=== PATIENT | male | born 1965 | race Caucasian/White ===

== ENCOUNTER → 2020-05-21 14:35 | Outpatient (BNVA) | payer OTHER, SELFPAY | PROVIDERS: PCP Internal Medicine; Referring Provider Internal Medicine; Visit Provider Dietitian, Registered | DX: Z76.89 Persons encountering health services in other specified circumstances (principal) ==

== ENCOUNTER → 2020-05-31 16:46 | Outpatient (BNVA) | payer OTHER, SELFPAY | PROVIDERS: PCP Internal Medicine; Referring Provider Internal Medicine; Visit Provider Dietitian, Registered | DX: Z76.89 Persons encountering health services in other specified circumstances (principal) ==

== ENCOUNTER 2020-07-05 08:20 | Outpatient (REF) | payer OTHER, SELFPAY ==
[2020-07-05 09:35] LABS: Cholesterol 198 mg/dL; Glucose Fasting 126 mg/dL (60-99); HDL Cholesterol 51 mg/dL; LDL Cholesterol Calculated 133 mg/dl; Triglycerides 73 mg/dL
== END 2020-07-05 08:21 | disposition home or self-care (01) ==
LOC: HO.LAB 08:20
PROVIDERS: PCP Internal Medicine; Visit Provider Internal Medicine
DX: E66.01 Morbid (severe) obesity due to excess calories (principal); E11.9 Type 2 diabetes mellitus without complications
CPT/HCPCS: 80061; 82947

== ENCOUNTER → 2020-09-11 08:22 | Outpatient (BNVA) | payer OTHER, SELFPAY | PROVIDERS: PCP Internal Medicine; Visit Provider Surgery | DX: Z76.89 Persons encountering health services in other specified circumstances (principal) ==

== ENCOUNTER → 2021-02-25 15:18 | Outpatient (BNVA) | payer OTHER, SELFPAY | PROVIDERS: PCP Internal Medicine; Referring Provider Internal Medicine; Visit Provider Surgery ==

== ENCOUNTER 2021-03-01 07:27 | Outpatient (REF) | payer OTHER, SELFPAY ==
[2021-03-01 08:20] LABS: MANUAL DIFF FLAG NO
[2021-03-01 08:29] LABS: Basophils Percent Auto 0.1 % (0-2); Eosinophils Absolute Auto 0.3 X10*3/uL (0.0-0.4); Eosinophils Percent Auto 2.6 % (0-4); Hematocrit 49.6 % (42-52); Hemoglobin 16.5 g/dl (14.0-18.0); Imm Gran Abs Auto 0.04 X10*3/uL (0.00-0.03); Imm Gran Pct Auto 0.4 % (0.0-0.4); Lymphocytes Percent Auto 19.6 % (20-40); Mean Corpuscular HGB Conc 33.3 g/dl (31.0-36.0); Mean Corpuscular Hemoglobin 28.4 pg (27.0-33.0); Mean Corpuscular Volume 85.5 fL (80-98); Mean Platelet Volume 10.1 fL (9.4-12.4); Monocytes Absolute Auto 0.7 X10*3/uL (0.1-1.2); Monocytes Percent Auto 6.7 % (2-11); Neutrophils Percent Auto 70.6 % (45-73); Platelet Count 340 X10*3/uL (160-400); Red Cell Distribution Width 14.4 % (11.0-16.0)
[2021-03-01 08:43] LABS: Estimated Average Glucose 163 mg/dL; Hemoglobin A1c % 7.3 %
[2021-03-01 08:48] LABS: Alanine Aminotransferase 78 U/L (0-40); Albumin Level 4.4 g/dL (3.5-5.0); Alkaline Phosphatase 78 U/L (39-117); Anion Gap 17 (12-20); Aspartate Amino Transferase 54 U/L (5-37); Bilirubin Total 1.1 mg/dL (0.0-1.0); Blood Urea Nitrogen 17 mg/dL (9-16); Carbon Dioxide 26 mmol/L (22-29); Chloride 100 mmol/L (96-108); Cholesterol 218 mg/dL; Estimated Glomerular Filt Rate > 60; Glucose Fasting 142 mg/dL (60-99); HDL Cholesterol 51 mg/dL; Iron 58 mcg/dL (45-160); LDL Cholesterol Calculated 151 mg/dl; Percent Iron Saturation 17 % (15-50); Potassium 3.9 mmol/L (3.3-5.1); Sodium 139 mmol/L (135-145); Total Iron Binding Capacity 343 mcg/dL (228-428); Total Protein 7.5 g/dL (6.5-8.0); Triglycerides 84 mg/dL; Unsaturated Iron Binding 285 ug/dL
[2021-03-01 09:02] LABS: Vitamin D 25-OH Total 39.6 ng/mL (>30)
[2021-03-01 09:07] LABS: Thyroid Stimulating Hormone 1.91 uIU/mL (0.32-4.0)
[2021-03-01 10:16] LABS: Creatinine Urine 161.17 mg/dL; Microalbum/Creatinine Ratio Ur 16.7 ug/mg cr
[2021-03-03 09:53] LABS: Vitamin B12 661 pg/mL (200-900)
[2021-03-03 15:11] LABS: Calcium (PTHI) 9.8 mg/dL (8.6-10.3); PTHI 87 pg/mL (14-64)
[2021-03-04 16:11] LABS: Zinc 73 mcg/dL (60-130)
[2021-03-05 19:16] LABS: Vitamin A 70 mcg/dL (38-98)
[2021-03-07 12:50] LABS: Vitamin B1 8 nmol/L (8-30)
== END 2021-03-01 07:28 | disposition home or self-care (01) ==
LOC: HO.LAB 07:27
PROVIDERS: Surgery; PCP Internal Medicine; Visit Provider Internal Medicine
DX: Z01.818 Encounter for other preprocedural examination (principal); E11.9 Type 2 diabetes mellitus without complications
CPT/HCPCS: 36415; 80053; 80061; 82043; 82306; 82607; 83036; 83540; 83970; 84425; 84443; 84590; 84630; 85025; 86140

== ENCOUNTER → 2021-04-17 14:20 | Outpatient (REF) | payer OTHER, SELFPAY | LOC: HO.SL 14:20 | PROVIDERS: PCP Internal Medicine; Visit Provider Internal Medicine | DX: G47.30 Sleep apnea, unspecified (principal) | CPT/HCPCS: 95806 ==

== ENCOUNTER 2021-11-29 07:11 | Outpatient (REF) | payer OTHER, SELFPAY ==
[2021-11-29 08:11] LABS: Estimated Average Glucose 269 mg/dL
[2021-11-29 08:13] LABS: Cholesterol 245 mg/dL; Glucose Fasting 314 mg/dL (60-99); HDL Cholesterol 44 mg/dL; LDL Cholesterol Calculated 174 mg/dl; Triglycerides 137 mg/dL
== END 2021-11-29 07:12 | disposition home or self-care (01) ==
LOC: HO.LAB 07:11
PROVIDERS: PCP Internal Medicine; Visit Provider Internal Medicine
DX: E11.65 Type 2 diabetes mellitus with hyperglycemia (principal)
CPT/HCPCS: 36415; 80061; 82947; 83036

== ENCOUNTER 2024-06-21 13:15 | Outpatient (AMB) | payer OTHER, SELFPAY ==
--- NOTE | 2024-06-21 13:20 | A.OFFPC_ITS ---
Vital Signs 06/21/24 13:26 Height 5 ft 8 in Weight 306 lb 6 oz BMI 46.6 BP 110/60 Blood Pressure Location Lt brachial Position Sitting Pulse 108 H Pulse Source Pulse Oximeter Pulse Oximetry (%) 94 Oxygen Delivery Method Room Air Intake Visit Reasons: f/u Screen Stretcher Required: No Accompanied by: Self / Same As Patient Allergies No Known Allergies [No Known Allergies*] Allergy (Verified 06/21/24 13:21) Tobacco use date assessed: 06/21/24 Dental Screening Dental Screen Date: 06/21/24 Did you have a dental visit in the last 12 months?: Yes Did you have a dental problem in the last 6 months where you did not have access to dental care?: No Was dental information given to patient?: Patient has dentist HPI f/u HPI Details DM on rx; not seen in 3 years [facility] Medical History (Updated 06/22/24 @ 12:35 by Andrzej Partida MD) HTN (hypertension) Diabetes mellitus Sleep apnea Morbid obesity History of trigger finger Surgical History History of tonsillectomy S/P cubital tunnel release History of hand surgery History of carpal tunnel surgery of right wrist History of umbilical hernia repair No pertinent past surgical history Family History Father Heart problem Mother No problems noted. Sister No problems noted. Sister No problems noted. Sister No problems noted. Son No problems noted. Son No problems noted. Son No problems noted. Social History Housing: House Alcohol intake: current Alcohol intake frequency: holidays/special occasions only Patient Tobacco Use Status: Never used Tobacco e-Cigarette/Vaping Use: Never Used Second Hand Smoke Exposure: No service: No Current occupational status: employed Cognitive needs: No Hearing needs: No Vision needs: No Questionnaire PHQ-9 Over the last 2 weeks, how often have you been bothered by any of the following problems? 1. Little interest or pleasure in doing things: more than half the days 2. Feeling down, depressed, or hopeless: several days 3. Trouble falling or staying asleep, or sleeping too much: several days 4. Feeling tired or having little energy: more than half the days 5. Poor appetite or overeating: nearly every day 6. Feeling bad about yourself - or that you are a failure or have let yourself or your family down: several days 7. Trouble concentrating on things, such as reading the newspaper or watching television: several days 8. Moving or speaking so slowly that other people could have noticed. Or the opposite - being so fidgety or restless that you have been moving around a lot more than usual: not at all 9. Thoughts that you would be better off or of hurting yourself in some way: several days Total score: 12 97430 - PHQ-9 Billing: Yes Source: Developed by Drs. Bruce Enriquez, Bethany Ahn, Gene Leach and colleagues, with an educational jerson from [employer]. Thrive Questionnaire Date Thrive assessed: 06/21/24 I am a: Patient What is your living situation today?: I have a steady place to live Within the past 12 months, did the food you bought not last and you didn't have the money to get more?: Never true Within the past 12 months, did you worry whether your food would run out before you got money to buy more?: Never true Do you have trouble paying for medicines?: No Do you have trouble getting transportation to medical appointments?: No Do you have trouble paying your heating and electricity bill?: No Do you have trouble taking care of your child, family member or friend?: No Do you have trouble with day-to-day activities such as bathing, preparing meals, shopping, managing finances, etc.?: No Are you currently unemployed and looking for a job?: No Are you interested in more education?: No Please select the resources that you would like help with: None Currently or been in a relationship where the following occur: No concerns reported THRIVE Score: 0 AUDIT C Alcohol Use Questionnaire (AUDIT-C) 1. How often do you have a drink containing alcohol?: Monthly or less 2. How many drinks containing alcohol do you have on a typical day when you are drinking?: 1 or 2 3. How often do you have six or more drinks on one occasion?: Never Total Score: 1 MAXINE-7 AMB Questionnaire MAXINE-7 Date MAXINE - 7 assessed: 11/06/24 Feeling nervous, anxious, or on edge: 1 = Several days Not being able to stop or control worryin = Nearly every day Worrying too much about different things: 3 = Nearly every day Trouble relaxin = Nearly every day Being so restless that it is hard to sit still: 2 = More than half the days Becoming easily annoyed or irritable: 3 = Nearly every day Feeling afraid as if something awful might happen: 3 = Nearly every day Total MAXINE-7 score (0-4 normal; 5-9 mild; 10-14 moderate; 15-21 severe): 18 Source: Developed by Drs. Bruce Enriquez, Bethany Ahn, Gene Leach and colleagues, with an educational jerson from [employer]. MAXINE-7 Assessment Billing MAXINE-7 Assessment Tool: MAXINE-7 Assessment 32091 Review of Systems Const Denies chills, Denies headache(s) and Denies weight loss ENT Denies headache(s) Card Denies chest pain, Denies syncope, Denies irregular heart rhythm and Denies dyspnea Resp Denies chest congestion, Denies cough and Denies dyspnea GI Denies abdominal pain, Denies change in stool character, Denies nausea and Denies vomiting Musc Denies deformity and Denies joint swelling Neuro Denies syncope and Denies headache(s) Physical exam (Primary Care) Vital Signs: Last Vital Signs Pulse 108 H 06/21/24 13:26 BP 110/60 06/21/24 13:26 Pulse Ox 94 06/21/24 13:26 Oxygen Delivery Method Room Air 06/21/24 13:26 BMI result Body Mass Index 46.6 Tobacco/Smoking Status: Tobacco use Status Tobacco use date assessed 06/21/24 06/21/24 13:28 Patient Tobacco Use Status Never used Tobacco 06/21/24 13:20 e-Cigarette/Vaping Use Never Used 06/21/24 13:20 PHQ-9: PHQ-9 Score PHQ-9: Total score 12 06/21/24 13:31 Thrive Assessment: Date of Thrive Assessment Date Thrive assessed 06/21/24 06/21/24 13:28 Currently or been in a relationship where the following occur: No concerns reported Const General: cooperative, comfortable, no acute distress and alert Neck Neck: Yes no lymphadenopathy Thyroid: Thyroid normal Resp Effort & Inspection: normal respiratory effort Auscultation: clear to auscultation bilaterally Percussion: percussion normal Cardio Jugular venous distension: no JVD Palpation: normal PMI Rate: regular rate Rhythm: regular rhythm Heart sounds: S1 normal heart sound present and S2 normal heart sound present GI Inspection: Yes normal to inspection Palpation (GI): No hepatosplenomegaly present Skin General skin exam: no rashes or lesions noted Extrem General: Yes no clubbing, cyanosis or edema Office Procedures Flu Questionnaire Does the patient have a severe egg allergy?: No Does the patient have severe life threatening allergies?: No Does the patient have a fever or illness today?: No Has the patient ever had Guillain-[place] Syndrome?: No Has the patient ever had any past reaction to a flu shot?: No Results AMB Hemoglobin A1c AMB Hemoglobin A1c 8.7 % Last Edit by GABBY Urban on 06/21/24 13:31 Immunizations Fluarix Triv [id number] (PF) 45 mcg (15 mcg x 3)/0.5 mL IM syringe Performing Provider: Andrzej Partida MD [facility] Documented (not given) by: GABBY Urban on 06/21/24 13:21 Reason Not Given: Patient Refused Results Reviewed Results Reviewed: Laboratory Last Values Hgb A1c (Clinic) 8.7 % (4.0-6.0) H 06/21/24 13:29 Coding Level of Care Code Est Pt Level 3 (36128) Diagnoses Diabetes mellitus E11.9 Additional Codes MAXINE-7 Assessment Billing - MAXINE-7 Assessment Tool: MAXINE-7 Assessment 64854 ([id number]) PHQ-9 - 48645 - PHQ-9 Billing: Yes ([id number]) Assessment & Plan Assessment & Plan (1) Diabetes mellitus: Code(s): E11.9 - Type 2 diabetes mellitus without complications Category: Medical Plan: do labs; Orders: Orders AMB Hemoglobin A1c 06/21/24 E11.9 - Type 2 diabetes mellitus without complications Lipid Panel 06/21/24 Z13.220 - Encounter for screening for lipoid disorders Hemoglobin A1c 06/21/24 R73.9 - Hyperglycemia, unspecified Microalbumin, Random (w Creat) 06/21/24 E11.69 - Type 2 diabetes mellitus with other specified complication, E66.01 - Morbid (severe) obesity due to excess calories Influenza 8680-2909 Immunization 06/21/24 Z23 - Encounter for immunization Thyroid Stimulating Hormone 06/21/24 Z13.29 - Encounter for screening for other suspected endocrine disorder Complete Blood Count Auto Diff 06/21/24 Z13.0 - Encounter for screening for diseases of the blood and blood-forming organs and certain disorders involving the immune mechanism Comprehensive Sunspot. Panel Fast 06/21/24 Z13.9 - Encounter for screening, unspecified
[2024-06-21 13:26] VITALS: BP 110/60; PULSE 108; O2SAT 94; BMI 46.6
== END 2024-06-21 13:40 | disposition home or self-care (01) ==
LOC: HO.HMCH 13:15
PROVIDERS: PCP Internal Medicine; Visit Provider Internal Medicine
DX: E11.9 Type 2 diabetes mellitus without complications (principal)

== ENCOUNTER → 2024-06-21 13:15 | Outpatient (BNVA) | payer OTHER, SELFPAY | PROVIDERS: PCP Internal Medicine; Visit Provider Internal Medicine | DX: E11.9 Type 2 diabetes mellitus without complications (principal) | CPT/HCPCS: 83036; 90471; 96127; 99212 ==

== ENCOUNTER 2024-06-24 07:20 | Outpatient (REF) | payer OTHER, SELFPAY ==
[2024-06-24 08:03] LABS: MANUAL DIFF FLAG NO
[2024-06-24 09:36] LABS: Estimated Average Glucose 189 mg/dL; Hemoglobin A1C 265.2985 umol/L; Hemoglobin A1c % 8.2 % (<6.0); Total Hemoglobin (HGBA1C) 4040.9625 umol/L
[2024-06-24 09:50] LABS: Basophils Percent Auto 0.2 % (0-2); Eosinophils Absolute Auto 0.4 X10*3/uL (0.0-0.4); Eosinophils Percent Auto 3.9 % (0-4); Hematocrit 46.4 % (42.0-52.0); Hemoglobin 15.6 g/dl (14.0-18.0); Imm Gran Abs Auto 0.04 X10*3/uL (0.00-0.03); Imm Gran Pct Auto 0.4 % (0.0-0.4); Lymphocytes Absolute Auto 2.5 X10*3/uL (1.2-4.9); Lymphocytes Percent Auto 26.6 % (20-40); Mean Corpuscular HGB Conc 33.6 g/dl (31.0-36.0); Mean Corpuscular Hemoglobin 29.5 pg (27.0-33.0); Mean Corpuscular Volume 87.9 fL (80.0-98.0); Mean Platelet Volume 10.3 fL (9.4-12.4); Monocytes Absolute Auto 0.6 X10*3/uL (0.1-1.2); Monocytes Percent Auto 6.7 % (2-11); Neutrophils Absolute Auto 5.9 x10*3/uL (2.0-8.3); Neutrophils Percent Auto 62.2 % (45-73); Platelet Count 328 X10*3/uL (160-400); Red Blood Count 5.28 X10*6/uL (4.60-5.80); Red Cell Distribution Width 13.4 % (11.0-16.0); White Blood Count 9.5 X10*3/uL (4.8-10.8)
[2024-06-24 10:23] LABS: Alanine Aminotransferase 50 U/L (0-40); Albumin Level 4.2 g/dL (3.5-5.0); Alkaline Phosphatase 62 U/L (39-117); Anion Gap 15 (12-20); Aspartate Amino Transferase 35 U/L (5-37); Bilirubin Total 0.6 mg/dL (0.0-1.0); Blood Urea Nitrogen 18 mg/dL (9-16); Calcium 10.3 mg/dL (8.4-10.2); Carbon Dioxide 27 mmol/L (22-29); Chloride 107 mmol/L (96-108); Cholesterol 181 mg/dL (<200); Estimated Glomerular Filt Rate > 60; Glucose Fasting 124 mg/dL (60-99); HDL Cholesterol 47 mg/dL (>40); LDL Cholesterol Calculated 116 mg/dL (<100); Potassium 4.2 mmol/L (3.3-5.1); Sodium 145 mmol/L (135-145); Total Protein 7.3 g/dL (6.5-8.0); Triglycerides 94 mg/dL (<150)
[2024-06-24 10:33] LABS: Creatinine Urine 133.36 mg/dL; Microalbum/Creatinine Ratio Ur 7.4 ug/mg cr (<30)
[2024-06-24 10:43] LABS: Thyroid Stimulating Hormone 2.56 uIU/mL (0.32-4.0)
== END 2024-06-24 07:21 | disposition home or self-care (01) ==
LOC: HO.LAB 07:20
PROVIDERS: PCP Internal Medicine; Visit Provider Internal Medicine
DX: E11.69 Type 2 diabetes mellitus with other specified complication (principal); Z13.9 Encounter for screening, unspecified; Z13.29 Encounter for screening for other suspected endocrine disorder; Z13.0 Encounter for screening for diseases of the blood and blood-forming organs and certain disorders involving the immune mechanism; Z13.220 Encounter for screening for lipoid disorders; E66.01 Morbid (severe) obesity due to excess calories
CPT/HCPCS: 36415; 80053; 80061; 82043; 82570; 83036; 84443; 85025

== ENCOUNTER 2024-07-05 13:53 | Outpatient (AMB) | payer OTHER, SELFPAY ==
--- NOTE | 2024-07-05 13:56 | MHC.PC.OV ---
Vital Signs 07/05/24 13:57 Height 5 ft 8 in Weight 308 lb BMI 46.8 BP 138/68 Blood Pressure Location Lt brachial Position Sitting Pulse 78 Pulse Source Pulse Oximeter Pulse Oximetry (%) 98 Oxygen Delivery Method Room Air Intake Visit Reasons: 2 Week f/u Allergies No Known Allergies [No Known Allergies*] Allergy (Verified 07/05/24 13:57) Medication List - Last Reconciled 07/06/24 by Andrzej Partida MD allopurinol 300 mg PO DAILY blood-glucose meter (FreeStyle Prospect Lite kit) As directed diclofenac sodium 75 mg PO BID hydrochlorothiazide 25 mg PO DAILY metformin 500 mg PO BID multivitamin 1 tab PO DAILY Tobacco use date assessed: 06/21/24 Dental Screening Dental Screen Date: 06/21/24 HPI 2 Week f/u HPI Details DM. A1C high; unclear what meds and dosage he is taking; when I find this out will adjust meds accordinglly [facility] Medical History (Updated 06/22/24 @ 12:35 by Andrzej Partida MD) HTN (hypertension) Diabetes mellitus Sleep apnea Morbid obesity History of trigger finger Surgical History History of tonsillectomy S/P cubital tunnel release History of hand surgery History of carpal tunnel surgery of right wrist History of umbilical hernia repair No pertinent past surgical history Family History (Updated 07/05/24 @ 13:57 by Nova Jones [facility]) Father Heart problem Mother No problems noted. Sister No problems noted. Sister No problems noted. Sister No problems noted. Son No problems noted. Son No problems noted. Son No problems noted. Social History Housing: House Alcohol intake: current Alcohol intake frequency: holidays/special occasions only Patient Tobacco Use Status: Never used Tobacco Tobacco use type: Cigarette e-Cigarette/Vaping Use: Never Used Second Hand Smoke Exposure: No service: No Current occupational status: employed Cognitive needs: No Hearing needs: No Vision needs: No Questionnaire PHQ-9 Over the last 2 weeks, how often have you been bothered by any of the following problems? 1. Little interest or pleasure in doing things: more than half the days 2. Feeling down, depressed, or hopeless: several days 3. Trouble falling or staying asleep, or sleeping too much: several days 4. Feeling tired or having little energy: more than half the days 5. Poor appetite or overeating: nearly every day 6. Feeling bad about yourself - or that you are a failure or have let yourself or your family down: several days 7. Trouble concentrating on things, such as reading the newspaper or watching television: several days 8. Moving or speaking so slowly that other people could have noticed. Or the opposite - being so fidgety or restless that you have been moving around a lot more than usual: not at all 9. Thoughts that you would be better off or of hurting yourself in some way: several days Total score: 12 40917 - PHQ-9 Billing: Yes Source: Developed by Drs. Bruce Enriquez, Bethany Ahn, Gene Leach and colleagues, with an educational jerson from [employer]. Thrive Questionnaire Date Thrive assessed: 06/21/24 AUDIT C Alcohol Use Questionnaire (AUDIT-C) 1. How often do you have a drink containing alcohol?: Monthly or less 2. How many drinks containing alcohol do you have on a typical day when you are drinking?: 1 or 2 3. How often do you have six or more drinks on one occasion?: Never Total Score: 1 MAXINE-7 AMB Questionnaire MAXINE-7 Date MAXINE - 7 assessed: 06/21/24 Feeling nervous, anxious, or on edge: 1 = Several days Not being able to stop or control worryin = Nearly every day Worrying too much about different things: 3 = Nearly every day Trouble relaxin = Nearly every day Being so restless that it is hard to sit still: 2 = More than half the days Becoming easily annoyed or irritable: 3 = Nearly every day Feeling afraid as if something awful might happen: 3 = Nearly every day Total MAXINE-7 score (0-4 normal; 5-9 mild; 10-14 moderate; 15-21 severe): 18 Source: Developed by Drs. Bruce Enriquez, Gene Brooke and colleagues, with an educational jerson from [employer]. MAIXNE-7 Assessment Billing MAXINE-7 Assessment Tool: MAXINE-7 Assessment 63033 Review of Systems Const Denies chills, Denies headache(s) and Denies weight loss ENT Denies headache(s) Card Denies chest pain, Denies syncope, Denies irregular heart rhythm and Denies dyspnea Resp Denies chest congestion, Denies cough and Denies dyspnea GI Denies abdominal pain, Denies change in stool character, Denies nausea and Denies vomiting Musc Denies deformity and Denies joint swelling Neuro Denies syncope and Denies headache(s) Physical exam (Primary Care) Vital Signs: Last Vital Signs Pulse 78 07/05/24 13:57 BP 138/68 07/05/24 13:57 Pulse Ox 98 07/05/24 13:57 Oxygen Delivery Method Room Air 07/05/24 13:57 BMI result Body Mass Index 46.8 Tobacco/Smoking Status: Tobacco use Status Tobacco use date assessed 06/21/24 07/05/24 13:58 Patient Tobacco Use Status Never used Tobacco 07/05/24 13:58 Tobacco use type Cigarette 07/05/24 13:58 e-Cigarette/Vaping Use Never Used 07/05/24 13:58 PHQ-9: PHQ-9 Score PHQ-9: Total score 12 07/05/24 14:04 Thrive Assessment: Date of Thrive Assessment Date Thrive assessed 06/21/24 07/05/24 13:58 Const General: cooperative, comfortable, no acute distress and alert Neck Neck: Yes no lymphadenopathy Thyroid: Thyroid normal Resp Effort & Inspection: normal respiratory effort Auscultation: clear to auscultation bilaterally Percussion: percussion normal Cardio Jugular venous distension: no JVD Palpation: normal PMI Rate: regular rate Rhythm: regular rhythm Heart sounds: S1 normal heart sound present and S2 normal heart sound present GI Inspection: Yes normal to inspection Palpation (GI): No hepatosplenomegaly present Skin General skin exam: no rashes or lesions noted Extrem General: Yes no clubbing, cyanosis or edema Coding Level of Care Code Est Pt Level 3 (78901) Diagnoses Diabetes mellitus E11.9 Additional Codes MAXINE-7 Assessment Billing - MAXINE-7 Assessment Tool: MAXINE-7 Assessment 65030 ([id number]) PHQ-9 - 47445 - PHQ-9 Billing: Yes ([id number]) Assessment & Plan Assessment & Plan (1) Diabetes mellitus: Code(s): E11.9 - Type 2 diabetes mellitus without complications Category: Medical Plan: will probably add ozempic
[2024-07-05 13:57] VITALS: BP 138/68; PULSE 78; O2SAT 98; BMI 46.8
== END 2024-07-05 14:13 | disposition home or self-care (01) ==
PROVIDERS: PCP Internal Medicine; Visit Provider Internal Medicine
DX: E11.9 Type 2 diabetes mellitus without complications (principal)

== ENCOUNTER → 2024-07-05 13:53 | Outpatient (BNVA) | payer OTHER, SELFPAY | PROVIDERS: PCP Internal Medicine; Visit Provider Internal Medicine | DX: E11.9 Type 2 diabetes mellitus without complications (principal) | CPT/HCPCS: 96127; 99212 ==

== ENCOUNTER 2024-07-07 07:21 | Emergency (ER) | payer OTHER, SELFPAY ==
--- NOTE | ~2024-07-07 | CT_ITS ---
EXAMINATION: CT ABDOMEN AND PELVIS WITHOUT CONTRAST CLINICAL INFORMATION: Acute left flank pain and left lower pain. COMPARISON: None available. TECHNIQUE: Multidetector volumetric imaging was performed from the superior aspect of the liver through the pubic symphysis. Sagittal and coronal reformatted images were obtained on the technologist's workstation. This CT examination was performed using dose optimization techniques as appropriate, variously including the following: *Automated exposure control *Adjustment of mA and/or kV according to patient size (this includes techniques or standardized protocols for targeted exams where dose is matched to indication/reason for exam; i.e. extremities or head) *Use of iterative reconstruction technique DLP: 1264 mGy-cm FINDINGS: Inadequate evaluation of the intra-abdominal solid organs and vascular structures due to lack of IV contrast. Subsegmental atelectasis versus scarring, lung bases and right middle lobe. LIVER, GALLBLADDER, AND BILIARY TREE: Liver measures 24 cm with decreased attenuation. No intrahepatic or extrahepatic biliary ductal dilatation. Punctate calcification in the gallbladder neck with layering intraluminal hyperdensity. No pericholecystic fluid collection or gallbladder wall thickening. There is questionable 1 mm hyperdensity in the distal common bile duct best seen on image #41. PANCREAS: Reduced volume of the pancreatic parenchyma. No peripancreatic fluid collection. Fatty density in the head and uncinate process. No main pancreatic ductal dilatation. SPLEEN: 12 cm. ADRENAL GLANDS: There is a 10 mm low density nodule measuring -15 Hounsfield units in the left adrenal gland. No nodular lesions in the right adrenal gland. KIDNEYS AND URETERS: No hydronephrosis or nephrolithiasis. Contour irregularities throughout the renal parenchyma bilaterally resembling lobulations. BLADDER: Fluid-filled. GASTROINTESTINAL TRACT: Gas filled prominent small bowel loops. No intestinal obstruction pattern. No pneumatosis intestinalis. Appendix is normal. No pneumoperitoneum. No ascites. There is mesenteric edema pattern. ABDOMINAL WALL: There is a moderate to large volume fat-containing umbilical hernia with septations/loculations. LYMPH NODES: No gross lymphadenopathy. VASCULAR: No aneurysm, abdominal aorta. PELVIC VISCERA: Prominent less than 5 cm prostate gland. OSSEOUS STRUCTURES: Multilevel thoracolumbar spondylosis, dextroconvex rotoscoliosis apex at L3 resulting in central spinal canal stenosis at L3-4 and to a lesser extent L4-5. CT/CT abdomen pelvis wo IV con IMPRESSION: Fat-containing umbilical hernia, moderate to large volume with facet effusions. Cholelithiasis and questionable choledocholithiasis without intraluminal or extrahepatic biliary ductal dilatation. Hepatomegaly and steatosis. Upper normal limits spleen. Lipid rich adenoma, left adrenal gland. No hydronephrosis or nephrolithiasis. Multilevel thoracolumbar spondylosis resulting in central spinal canal stenosis, L3-4 and L4-5 levels. Fleischner guidelines were followed. Electronically signed by: Umer Kwok MD 07/07/2024 09:26 AM BRAULIO ROMERO
[2024-07-07 07:24] VITALS: BP 131/81; PULSE 91; RESP 18; TEMP 36.6; O2SAT 96; BMI 44.0
[2024-07-07 07:45] LABS: MANUAL DIFF FLAG NO
[2024-07-07 07:46] LABS: Basophils Percent Auto 0.2 % (0-2); Eosinophils Absolute Auto 0.4 X10*3/uL (0.0-0.4); Hematocrit 47.4 % (42.0-52.0); Imm Gran Abs Auto 0.03 X10*3/uL (0.00-0.03); Imm Gran Pct Auto 0.3 % (0.0-0.4); Lymphocytes Absolute Auto 2.2 X10*3/uL (1.2-4.9); Lymphocytes Percent Auto 22.2 % (20-40); Mean Corpuscular HGB Conc 33.8 g/dl (31.0-36.0); Mean Corpuscular Hemoglobin 29.4 pg (27.0-33.0); Mean Corpuscular Volume 87.1 fL (80.0-98.0); Mean Platelet Volume 9.6 fL (9.4-12.4); Monocytes Absolute Auto 0.5 X10*3/uL (0.1-1.2); Monocytes Percent Auto 5.4 % (2-11); Neutrophils Absolute Auto 6.7 x10*3/uL (2.0-8.3); Neutrophils Percent Auto 67.9 % (45-73); Platelet Count 324 X10*3/uL (160-400); Red Blood Count 5.44 X10*6/uL (4.60-5.80); Red Cell Distribution Width 13.2 % (11.0-16.0); White Blood Count 9.9 X10*3/uL (4.8-10.8)
[2024-07-07 07:47] LABS: Appearance Urine Clear; Color Urine Dark Yellow; Glucose Urine UA 100 mg/dL (Negative); Leukocyte Esterase Urine Trace (Negative); Nitrite Urine Negative (Negative); PH 6.5 (5.0-9.0); Specific Gravity - Urine 1.025 (1.005-1.025); UMIC TRIGGER UACC YES; Urine Blood Negative (Negative); Urine Ketones Negative (Negative); Urine Protein Trace mg/dL (Neg-Trace)
[2024-07-07 07:51] LABS: Bacteria Urine None Seen (None Seen); RBC Urine 0-2 /HPF (0-2); Squamous Epithelial Cell Urine 0-2 /HPF (0-2); WBC Urine 0-5 /HPF (0-5)
[2024-07-07 07:59] LABS: Alanine Aminotransferase 55 U/L (0-40); Albumin Level 4.1 g/dL (3.5-5.0); Alkaline Phosphatase 66 U/L (39-117); Anion Gap 15 (12-20); Aspartate Amino Transferase 44 U/L (5-37); Blood Urea Nitrogen 14 mg/dL (9-16); Calcium 9.5 mg/dL (8.4-10.2); Carbon Dioxide 24 mmol/L (22-29); Chloride 103 mmol/L (96-108); Creatinine Clr Calc Pharmacy 120.4; Estimated Glomerular Filt Rate > 60; Glucose Random 193 mg/dL (60-115); Potassium 3.6 mmol/L (3.3-5.1); Sodium 138 mmol/L (135-145); Total Protein 7.1 g/dL (6.5-8.0)
[2024-07-07 08:10] VITALS: RESP 17
[2024-07-07] MEDS: Ketorolac Tromethamine 30 MG/ML VIAL IM (08:17)
--- NOTE | 2024-07-07 08:43 | ED_ITS ---
HPI - General Adult General Chief complaint: General Medical Stated complaint: quest kidney stone Time Seen by Provider: 07/07/24 08:06 Source: patient Mode of arrival: ambulatory Limitations: no limitations History of Present Illness ED Provider: Delmi Chaudhry PA-C HPI narrative: 59 yo male with history of morbid obesity, SIXTO, DM, kidney stones, diverticulitis who presents to the ER for evaluation of severe, intermittent, nonradiating left lower back/left lower flank pain that started last night. He states the pain came on gradually last night when he was sitting. It was severe and worse when he beared weight on his left leg. He Reports pain felt similar to when he had a kidney stone. It subsided and he was able to sleep well last night. He reports this morning the pain came back, located in his left lower back and left lower flank. It does not radiate. he is concerned he may have a kidney stone or diverticulitis. Denies any nausea, vomiting, diarrhea or constipation. No fever or chills. No urinary symptoms. Urinating normally x2 overnight. He denies any injury or falls. MD complaint: Left low back/ left lower flank pain Onset (ago): hour(s) Location: abdomen Radiation: non-radiation Severity: severe Quality: stabbing Pain Consistency: intermittent Relieving factors: none Exacerbating factors: movement Associated symptoms: denies other symptoms Treatments prior to arrival: none Related Data Home Medications ?Medication ?Instructions ?Recorded ?Confirmed multivitamin 1 tab PO DAILY 02/25/21 07/06/24 blood-glucose meter (FreeStyle 07/05/24 07/06/24 [place] Lite kit) Previous Rx's ?Medication ?Instructions ?Recorded diclofenac sodium 75 mg 75 mg PO BID #60 tabs 05/23/21 tablet,delayed release metformin 500 mg tablet 500 mg PO BID #180 tabs 07/12/21 allopurinol 300 mg tablet 300 mg PO DAILY #90 tabs 07/21/21 hydrochlorothiazide 25 mg tablet 25 mg PO DAILY #90 tabs 09/04/21 cyclobenzaprine 10 mg tablet 10 mg PO TID PRN muscle spasm #14 07/07/24 tabs lidocaine 5 % topical patch 1 patch topical DAILY #15 ea 07/07/24 naproxen 500 mg tablet 500 mg PO BID PRN pain #20 tabs 11/22/24 Allergies Allergy/AdvReac Type Severity Reaction Status Date / Time No Known Allergies Allergy Verified 07/07/24 07:25 [No Known Allergies*] Review of Systems 2 Review of Systems: Yes all other systems are reviewed and are negative [facility] Past Medical History Medical History (Updated 07/07/24 @ 09:46 by TORRI Curry) HTN (hypertension) Diabetes mellitus Sleep apnea Morbid obesity History of trigger finger Surgical History History of tonsillectomy S/P cubital tunnel release History of hand surgery History of carpal tunnel surgery of right wrist History of umbilical hernia repair No pertinent past surgical history Family History Family History (Updated 07/05/24 @ 13:57 by Nova Jones CMA) Father Heart problem Mother No problems noted. Sister No problems noted. Sister No problems noted. Sister No problems noted. Son No problems noted. Son No problems noted. Son No problems noted. Social History Social History Housing: House Alcohol intake: current Alcohol intake frequency: holidays/special occasions only Patient Tobacco Use Status: Never used Tobacco Tobacco use type: Cigarette e-Cigarette/Vaping Use: Never Used Second Hand Smoke Exposure: No service: No Current occupational status: employed Cognitive needs: No Hearing needs: No Vision needs: No Physical Exam ED Vital Signs: Vital Signs - 24 hr 07/07/24 07:24 07/07/24 08:10 07/07/24 10:02 Temperature 97.8 F 98.2 F Pulse Rate 91 88 Respiratory Rate 18 17 18 Blood Pressure 131/81 133/82 Pulse Oximetry 96 96 Oxygen Delivery Method Room Air Room Air BMI result Body Mass Index 44.0 Appearance: Alert. Oriented X3. No acute distress. Head: normocephalic, atraumatic. Eyes: Pupils equal, round and reactive to light. ENT: Pharynx normal. No tonsillar swelling or exudate. Neck: Normal inspection. Neck supple. CVS: Normal heart rate and rhythm. Pulses normal. Respiratory: No respiratory distress. Breath sounds normal. Abdomen: Obese, Soft with mild LLQ pain to deep palpation only, no rebound or guarding. normal active +BS x4. No CVA tenderness on the right. Back: mild tenderness of the soft tissues of the middle lumbar area on the left and left lateral flank. no ecchymosis Skin: Skin warm and dry. Normal skin color. Normal skin turgor. No rashes. Extremities: No lower extremity edema. No joint swelling. Neuro/psych: Oriented X 3. No motor deficit. No sensory deficit. CN II-XII intact. Normal speech and cognition. Medications Administered Discontinued Medications Generic Name Dose Route Start Last Admin Trade Name Freq PRN Reason Stop Dose Admin Ketorolac Tromethamine 30 mg 07/07/24 08:10 07/07/24 08:17 Ketorolac Tromethamine 30 Mg/Ml Vial IM 07/07/24 08:11 30 mg ONCE ONE Administration Medical Decision Making Medical Decision Making MDM Narrative: 59 yo male with history of morbid obesity, SIXTO, DM, kidney stones, diverticulitis who presents to the ER for evaluation of severe, intermittent, nonradiating left lower back/left lower flank pain that started last night. He states the pain came on gradually last night when he was sitting. Patient was concerned about kidney stone vs diverticulitis. labs reassuring with no leukocytosis, mild transaminitis with normal bili and alk phos. UA with only 0-2 RBC. given IM toradol with improvement in his pain CT scan performed with does not show any ureteral stone, no hydro. no diverticulitis. there is question of CBD stone but ducts appear normal. he has 0 RUQ pain. his alk phos and bilirubins are normal. doubt true choledocholithiasis. patients left lower back pain likely MSK in nature. advised to f/u with PCP, take NSAID and muscle relaxer PRN. Differential Diagnosis Differential Diagnoses: The differential diagnosis associated with the presentation includes kidney stone, hydronephrosis, diverticulitis, MSK back pain, low suspicion for CBD stone Admission/Observation Consideration of admission/observation: Escalation of care including admission/observation considered Lab Data MDM Lab Attestation statement: I reviewed the patient's lab results. mild transaminitis, noninfected UA 07/07/24 07:35 07/07/24 07:35 Labs: Lab Results 07/07/24 07/07/24 Range/Units 07:35 07:39 WBC 9.9 (4.8-10.8) X10*3/uL RBC 5.44 (4.60-5.80) X10*6/uL Hgb 16.0 (14.0-18.0) g/dl Hct 47.4 (42.0-52.0) % MCV 87.1 (80.0-98.0) fL MCH 29.4 (27.0-33.0) pg MCHC 33.8 (31.0-36.0) g/dl RDW 13.2 (11.0-16.0) % Plt Count 324 (160-400) X10*3/uL MPV 9.6 (9.4-12.4) fL Immature Gran % (Auto) 0.3 (0.0-0.4) % Neut % (Auto) 67.9 (45-73) % Lymph % (Auto) 22.2 (20-40) % Ray % (Auto) 5.4 (2-11) % Eos % (Auto) 4.0 (0-4) % Baso % (Auto) 0.2 (0-2) % Lymph # (Auto) 2.2 (1.2-4.9) X10*3/uL Ray # (Auto) 0.5 (0.1-1.2) X10*3/uL Eos # (Auto) 0.4 (0.0-0.4) X10*3/uL Baso # (Auto) 0.0 (0.0-0.2) X10*3/uL Abs Immat Gran (auto) 0.03 (0.00-0.03) X10*3/uL Absolute Neuts (auto) 6.7 (2.0-8.3) x10*3/uL Absolute Nucleated RBC 0.000 (0.0-0.012) X10*3/uL Nucleated RBC % (auto) 0.0 (0.0-0.2) /100WBC Sodium 138 (135-145) mmol/L Potassium 3.6 (3.3-5.1) mmol/L Chloride 103 (96-108) mmol/L Carbon Dioxide 24 (22-29) mmol/L Anion Gap 15 (12-20) BUN 14 (9-16) mg/dL Creatinine 0.89 (0.5-1.4) mg/dL Estim Creat Clear Calc 120.4 Estimated GFR > 60 Random Glucose 193 H (60-115) mg/dL Calcium 9.5 D (8.4-10.2) mg/dL Total Bilirubin 1.0 (0.0-1.0) mg/dL AST 44 H (5-37) U/L ALT 55 H (0-40) U/L Alkaline Phosphatase 66 (39-117) U/L Total Protein 7.1 (6.5-8.0) g/dL Albumin 4.1 (3.5-5.0) g/dL Urine Color Dark Yellow Urine Appearance Clear Urine pH 6.5 (5.0-9.0) Ur Specific Stephen 1.025 (1.005-1.025) Urine Protein Trace (Neg-Trace) mg/dL Urine Glucose (UA) 100 H (Negative) mg/dL Urine Ketones Negative (Negative) mg/dL Urine Blood Negative (Negative) Urine Nitrite Negative (Negative) Ur Leukocyte Esterase Trace H (Negative) Urine RBC 0-2 (0-2) /HPF Urine WBC 0-5 (0-5) /HPF Ur Squamous Epith Cells 0-2 (0-2) /HPF Urine Bacteria None Seen (None Seen) Hyaline Casts 3-5 (0-2) /LPF Independent Interpretation I performed an independent interpretation of an: CT Scan Interpretation: normal appearing left kidney without hydro, no appreciated colonic stranding. normal appearing biliary tree, no appreciated CBD stone Radiology Impression Discussion of test interpretation with radiology: I have reviewed the radiologist's reading. Radiologist Impression: CT/CT abdomen pelvis wo IV con IMPRESSION: Fat-containing umbilical hernia, moderate to large volume with facet effusions. Cholelithiasis and questionable choledocholithiasis without intraluminal or extrahepatic biliary ductal dilatation. Hepatomegaly and steatosis. Upper normal limits spleen. Lipid rich adenoma, left adrenal gland. No hydronephrosis or nephrolithiasis. Multilevel thoracolumbar spondylosis resulting in central spinal canal stenosis, L3-4 and L4-5 levels. External Record Review External record reviewed: Outpatient record, Prior outpatient labs and Prior outpatient radiology Tests considered The following testing was considered but not selected: RUQ U/S considered, no emergent need. Prescription Management I considered prescription management with: Pain Medication Chronic Conditions Patient?s care impacted by: Diabetes and Other (obesity) Critical Care Time Critical Care Time Critical Care Time: No Discharge Plan Discharge Clinical Impression: Low back pain Qualifiers: Chronicity: acute Back pain laterality: left Sciatica presence: without sciatica Qualified Code(s): M54.50 - Low back pain, unspecified Patient Disposition: Home, Self-Care Instructions: Acute Low Back Pain (ED), Lower Back Exercises (ED) Additional Instructions: Your pain is most likely due to muscle strain and spasm. No bending, lifting or twisting. Use ice several times per day for 20 minutes at a time for the next 48 hours and then change to heat. Take medications as prescribed to help with pain and discomfort. Follow up with your Primary Care Doctor next week. If your pain worsens, if you develop new numbness, tingling, weakness, loss of function or incontinence call 911 or come back to the ER right away for evaluation. CT/CT abdomen pelvis wo IV con IMPRESSION: Fat-containing umbilical hernia, moderate to large volume with facet effusions. Cholelithiasis and questionable choledocholithiasis without intraluminal or extrahepatic biliary ductal dilatation. Hepatomegaly and steatosis. Upper normal limits spleen. Lipid rich adenoma, left adrenal gland. No hydronephrosis or nephrolithiasis. Multilevel thoracolumbar spondylosis resulting in central spinal canal stenosis, L3-4 and L4-5 levels. Prescriptions: New cyclobenzaprine 10 mg tablet 10 mg PO TID PRN (Reason: muscle spasm) Qty: 14 0RF lidocaine 5 % adhesive patch,medicated 1 patch topical DAILY Qty: 15 0RF Rx Instructions: leave on most painful area for up to 12 hrs naproxen 500 mg tablet 500 mg PO BID PRN (Reason: pain) Qty: 20 0RF No Action diclofenac sodium 75 mg tablet,delayed release (DR/EC) 75 mg PO BID Qty: 60 8RF metformin 500 mg tablet 500 mg PO BID Qty: 180 8RF allopurinol 300 mg tablet 300 mg PO DAILY Qty: 90 8RF hydrochlorothiazide 25 mg tablet 25 mg PO DAILY Qty: 90 8RF multivitamin Tablet 1 tab PO DAILY (DME) blood-glucose meter [FreeStyle [place] Lite] Kit See Rx Instructions .Route Rx Instructions: As directed Referrals: Andrzej Partida MD [Primary Care Provider] - Stand Alone Forms: Work/School Release Interventions: ED Discharge Assessment Last Done: 07/07/24 10:02 Discharge Date/Time: 07/07/24 10:13 Print Language: Azeri
[2024-07-07 10:02] VITALS: BP 133/82; PULSE 88; RESP 18; TEMP 36.8; O2SAT 96
== END 2024-07-07 10:13 | disposition home or self-care (01) ==
PROVIDERS: Emergency Provider Emergency Medicine; PCP Internal Medicine
DX: M54.50 Low back pain, unspecified (principal); E11.9 Type 2 diabetes mellitus without complications; I10 Essential (primary) hypertension; E66.01 Morbid (severe) obesity due to excess calories; Z68.41 Body mass index [BMI] 40.0-44.9, adult; Z79.84 Long term (current) use of oral hypoglycemic drugs; Z79.899 Other long term (current) drug therapy
CPT/HCPCS: 36415; 74176; 80053; 81001; 85025; 96372; 99284; J1885

== ENCOUNTER → 2024-07-07 08:10 | Outpatient (BNV) | payer OTHER, SELFPAY | PROVIDERS: Emergency Provider Emergency Medicine; PCP Internal Medicine; Visit Provider Radiology Diagnostic Radiology | DX: K80.20 Calculus of gallbladder without cholecystitis without obstruction (principal); K42.0 Umbilical hernia with obstruction, without gangrene; R16.0 Hepatomegaly, not elsewhere classified | CPT/HCPCS: 74176 ==

== ENCOUNTER 2024-09-14 11:44 | Outpatient (AMB) | payer OTHER, SELFPAY ==
--- NOTE | 2024-09-14 11:44 | MHC.PC.OV ---
Intake Visit Reasons: 2 month f/u edward 08/22 Funeral Attendant Required: No Information Interpreted: non-clinical & clinical Bull Fiddle Player: Not Required per policy Allergies No Known Allergies [No Known Allergies*] Allergy (Verified 09/14/24 11:45) Medication List - Last Reconciled 09/15/24 by Andrzej Partida MD allopurinol 300 mg PO DAILY blood-glucose meter (FreeStyle [place] Lite kit) As directed cyclobenzaprine 10 mg PO TID PRN diclofenac sodium 75 mg PO BID hydrochlorothiazide 25 mg PO DAILY lidocaine 5% 1 patch topical DAILY metformin 1,000 mg (2 x 500 mg) PO BID multivitamin 1 tab PO DAILY naproxen 500 mg PO BID PRN oseltamivir (Tamiflu) 30 mg PO DAILY 5 days semaglutide (Ozempic) 1 mg (0.75 mL) subcut QWEEK Tobacco use date assessed: 09/14/24 Dental Screening Dental Screen Date: 09/14/24 Did you have a dental visit in the last 12 months?: Yes Did you have a dental problem in the last 6 months where you did not have access to dental care?: No Was dental information given to patient?: Patient has dentist HPI 2 month f/u edward 08/22 HPI Details hypertension; stable and doing well [facility] Medical History (Updated 09/15/24 @ 09:19 by Andrzej Partida MD) HTN (hypertension) Diabetes mellitus Sleep apnea Morbid obesity History of trigger finger Surgical History History of tonsillectomy S/P cubital tunnel release History of hand surgery History of carpal tunnel surgery of right wrist History of umbilical hernia repair No pertinent past surgical history Family History Father Heart problem Mother No problems noted. Sister No problems noted. Sister No problems noted. Sister No problems noted. Son No problems noted. Son No problems noted. Son No problems noted. Social History Housing: House Alcohol intake: current Alcohol intake frequency: holidays/special occasions only Patient Tobacco Use Status: Never used Tobacco Tobacco use type: Cigarette e-Cigarette/Vaping Use: Never Used Second Hand Smoke Exposure: No service: No Current occupational status: employed Cognitive needs: No Hearing needs: No Vision needs: No Questionnaire PHQ-9 Over the last 2 weeks, how often have you been bothered by any of the following problems? 1. Little interest or pleasure in doing things: not at all 2. Feeling down, depressed, or hopeless: not at all 3. Trouble falling or staying asleep, or sleeping too much: not at all 4. Feeling tired or having little energy: not at all 5. Poor appetite or overeating: not at all 6. Feeling bad about yourself - or that you are a failure or have let yourself or your family down: not at all 7. Trouble concentrating on things, such as reading the newspaper or watching television: not at all 8. Moving or speaking so slowly that other people could have noticed. Or the opposite - being so fidgety or restless that you have been moving around a lot more than usual: not at all 9. Thoughts that you would be better off or of hurting yourself in some way: not at all Total score: 0 Depression Screening Interpretation: Negative Depression Screening Done: Yes 59866 - PHQ-9 Billing: Yes Source: Developed by Drs. Bruce Enriquez, Bethany Ahn, Gene Leach and colleagues, with an educational jerson from [employer]. Thrive Questionnaire Date Thrive assessed: 09/14/24 I am a: Patient What is your living situation today?: I have a steady place to live Within the past 12 months, did the food you bought not last and you didn't have the money to get more?: Never true Within the past 12 months, did you worry whether your food would run out before you got money to buy more?: Never true Do you have trouble paying for medicines?: No Do you have trouble getting transportation to medical appointments?: No Do you have trouble paying your heating and electricity bill?: No Do you have trouble taking care of your child, family member or friend?: No Do you have trouble with day-to-day activities such as bathing, preparing meals, shopping, managing finances, etc.?: No Are you currently unemployed and looking for a job?: No Are you interested in more education?: No Please select the resources that you would like help with: None Currently or been in a relationship where the following occur: No concerns reported THRIVE Score: 0 AUDIT C Alcohol Use Questionnaire (AUDIT-C) 1. How often do you have a drink containing alcohol?: Monthly or less 2. How many drinks containing alcohol do you have on a typical day when you are drinking?: 1 or 2 3. How often do you have six or more drinks on one occasion?: Never Total Score: 1 MAXINE-7 AMB Questionnaire MAXINE-7 Date MAXINE - 7 assessed: 09/14/24 Feeling nervous, anxious, or on edge: 0 = Not at all Not being able to stop or control worryin = Not at all Worrying too much about different things: 0 = Not at all Trouble relaxin = Not at all Being so restless that it is hard to sit still: 0 = Not at all Becoming easily annoyed or irritable: 0 = Not at all Feeling afraid as if something awful might happen: 0 = Not at all Total MAXINE-7 score (0-4 normal; 5-9 mild; 10-14 moderate; 15-21 severe): 0 Source: Developed by Drs. Bruce Enriquez, Bethany Ahn, Gene Leach and colleagues, with an educational jerson from [employer]. MAXINE-7 Assessment Billing MAXINE-7 Assessment Tool: MAXINE-7 Assessment 92909 Review of Systems Const Denies chills, Denies headache(s) and Denies weight loss ENT Denies headache(s) Card Denies chest pain, Denies syncope, Denies irregular heart rhythm and Denies dyspnea Resp Denies chest congestion, Denies cough and Denies dyspnea GI Denies abdominal pain, Denies change in stool character, Denies nausea and Denies vomiting Musc Denies deformity and Denies joint swelling Neuro Denies syncope and Denies headache(s) Physical exam (Primary Care) Tobacco/Smoking Status: Tobacco use Status Tobacco use date assessed 09/14/24 09/14/24 11:46 Patient Tobacco Use Status Never used Tobacco 09/14/24 11:46 Tobacco use type Cigarette 09/14/24 11:46 e-Cigarette/Vaping Use Never Used 09/14/24 11:46 PHQ-9: PHQ-9 Score PHQ-9: Total score 0 09/14/24 11:46 Depression Screening Interpretation: Negative Thrive Assessment: Date of Thrive Assessment Date Thrive assessed 09/14/24 09/14/24 11:46 Currently or been in a relationship where the following occur: No concerns reported Telehealth Telehealth Telehealth Platform: Telephone Location of provider rendering services: practice address Location of patient: address on file Patient Identification confirmed using: Name, : Yes Telehealth method: voice only Patient verbally consented to treatment: Yes Patient verbally consented to billing insurance company: Yes Patient informed of any privacy concerns related to visit: Yes Minutes spent on Phone/Video with Pt.: 15 (telephone) Coding Level of Care Code Tele Est Pt Level 3 (57255) Diagnoses HTN (hypertension) I10 Additional Codes MAXINE-7 Assessment Billing - MAXINE-7 Assessment Tool: MAXINE-7 Assessment 03865 ([id number]) PHQ-9 - 47699 - PHQ-9 Billing: Yes ([id number]) Assessment & Plan Assessment & Plan (1) HTN (hypertension): Code(s): I10 - Essential (primary) hypertension Category: Medical Plan: stable; samerx
== END 2024-09-14 12:26 | disposition home or self-care (01) ==
LOC: HO.HMCH 11:44
PROVIDERS: PCP Internal Medicine; Visit Provider Internal Medicine
DX: I10 Essential (primary) hypertension (principal)

== ENCOUNTER → 2024-09-14 11:44 | Outpatient (BNVA) | payer OTHER, SELFPAY | PROVIDERS: PCP Internal Medicine; Visit Provider Internal Medicine | DX: I10 Essential (primary) hypertension (principal) | CPT/HCPCS: 96127 ==

== ENCOUNTER 2024-09-18 10:19 | Outpatient (AMB) | payer OTHER, SELFPAY ==
--- NOTE | 2024-09-18 10:25 | AM.OFFWIN_ITS ---
Intake Vital Signs 09/18/24 10:29 Weight 306 lb BP 122/80 Blood Pressure Location Rt brachial Position Sitting Pulse 102 H Pulse Source Pulse Oximeter Temp 98.4 F Temp Source Oral Pulse Oximetry (%) 96 Oxygen Delivery Method Room Air Intake Visit Reasons: EP-flu symptoms Intake Note: Patient here because he needs a work note after having the flu last week and is just looking to go back to work. Patient Tobacco Use Status: Never used Tobacco Allergies No Known Allergies [No Known Allergies*] Allergy (Verified 09/18/24 10:29) Do you need a note to return to daycare/school/sports/work: Yes HPI HPI Comments History of Present Illness Details History - The patient is a 59-year-old male pres enting with influenza A. - Initial symptoms began last week follo wing his 's diagnosis with influenza A. - The patient received Tamiflu from his primary care physician to manage the infection. - Symptoms persisted, and he reported hi s condition to his employer to justify work absence. - The patient is now feeling better over all, with residual fatigue as the primary complaint - The patient requires a medical note fo r work clearance. Physical Exam General: Cooperative, healthy appearing, comfortable and no acute distress Orientation/consciousness: Patient oriented x3 Limitations: No limitations Head: Normal to inspection Ears: Hearing grossly normal bilaterally, external ears normal Nose: Normal external nose present Face and sinus: Normal facial exam Eyes: Appearance normal, both eyes and all related structures Neck: Normal visual inspection Respiratory: Normal respiratory effort, able to speak in complete sentences, no respiratory distress, not tachypneic, no tripod positioning and no use of accessory muscles Skin: No rashes or lesions noted Neuro: Patient oriented x3 Extremities: Normal to inspection and Yes no clubbing, cyanosis or edema [facility], [facility] Medical History (Updated 09/18/24 @ 10:46 by Sindi Gallagher PA-C) HTN (hypertension) Diabetes mellitus Sleep apnea Morbid obesity History of trigger finger Surgical History History of tonsillectomy S/P cubital tunnel release History of hand surgery History of carpal tunnel surgery of right wrist History of umbilical hernia repair No pertinent past surgical history Family History Father Heart problem Mother No problems noted. Sister No problems noted. Sister No problems noted. Sister No problems noted. Son No problems noted. Son No problems noted. Son No problems noted. Social History Housing: House Alcohol intake: current Alcohol intake frequency: holidays/special occasions only Patient Tobacco Use Status: Never used Tobacco Tobacco use type: Cigarette e-Cigarette/Vaping Use: Never Used Second Hand Smoke Exposure: No service: No Current occupational status: employed Cognitive needs: No Hearing needs: No Vision needs: No Review of Systems Const All systems reviewed & are unremarkable except as noted in HPI and below Physical Exam Vital Signs: Last Vital Signs Temp 98.4 F 09/18/24 10:29 Pulse 102 H 09/18/24 10:29 BP 122/80 09/18/24 10:29 Pulse Ox 96 09/18/24 10:29 Oxygen Delivery Method Room Air 09/18/24 10:29 Assessment & Plan Assessment & Plan (1) Acute viral syndrome: Code(s): B34.9 - Viral infection, unspecified Plan: Patient has been instructed to increase fluid intake as a countermeasure against dehydration as HR is low 100's and he did have fevers last week, now resolved. I have recommended that he continue to monitor his heart rate using his home devices. The patient is recovering from influenza A after treatment with Tamiflu. Increasing fluid intake is essential to counter dehydration effects associated with recent fevers. A [id number] note with no restrictions will be provided to the patient. Patient was informed and verbally consented to the use of an ambient scribe for clinic note documentation during this visit Coding Level of Care Code Est Pt Level 3 (01325) Diagnoses Acute viral syndrome B34.9
[2024-09-18 10:29] VITALS: BP 122/80; PULSE 102; TEMP 36.9; O2SAT 96
== END 2024-09-18 10:47 | disposition home or self-care (01) ==
PROVIDERS: PCP Internal Medicine; Visit Provider Physician Assistant
DX: B34.9 Viral infection, unspecified (principal)